=== PATIENT | female | born 1955 | race Caucasian/White ===

== ENCOUNTER → 2023-09-14 17:29 | Outpatient (REF) | payer OTHER, SELFPAY | LOC: WDC 17:29 | PROVIDERS: ATTENDING PHYSICIAN Obstetrics & Gynecology; FAMILY PHYSICIAN Family Medicine | DX: Z12.13 Encounter for screening for malignant neoplasm of small intestine (principal) | CPT/HCPCS: 77063; 77067 ==

== ENCOUNTER → 2024-05-30 13:07 | Outpatient (REF) | payer OTHER, SELFPAY | LOC: WDC 13:07 | PROVIDERS: ATTENDING PHYSICIAN Obstetrics & Gynecology; FAMILY PHYSICIAN Family Medicine | DX: R92.333 Mammographic heterogeneous density, bilateral breasts (principal) | CPT/HCPCS: 76641 ==

== ENCOUNTER → 2024-05-30 15:44 | Outpatient (REF) | payer OTHER, SELFPAY | LOC: HWRCS 15:44 | PROVIDERS: ATTENDING PHYSICIAN Internal Medicine; FAMILY PHYSICIAN Family Medicine | DX: I47.10 Supraventricular tachycardia, unspecified (principal); I34.0 Nonrheumatic mitral (valve) insufficiency; I10 Essential (primary) hypertension | CPT/HCPCS: 93306 ==

== ENCOUNTER → 2024-09-17 12:25 | Outpatient (REF) | payer OTHER, SELFPAY | LOC: HWRAD 12:25 | PROVIDERS: ATTENDING PHYSICIAN Internal Medicine Endocrinology, Diabetes & Metabolism; FAMILY PHYSICIAN Family Medicine | DX: E04.1 Nontoxic single thyroid nodule (principal); E06.3 Autoimmune thyroiditis | CPT/HCPCS: 76536 ==

== ENCOUNTER → 2025-02-26 10:34 | Outpatient (REF) | payer OTHER, SELFPAY ==
[2025-02-27 12:54] LABS: Mumps Virus IgG Positive; Varicella Zoster IgG (VZV) Positive
== END ==
LOC: OHS 10:34
PROVIDERS: ATTENDING PHYSICIAN Nurse Practitioner Family
DX: Z23 Encounter for immunization (principal)
CPT/HCPCS: 36415; 86480; 86735; 86762; 86765; 86787